=== PATIENT | female | born 1960 | race Caucasian/White ===

== ENCOUNTER 2018-03-01 11:22 | Emergency (ER) | payer MEDICARE, MEDICAID ==
[~2018-03-01] VITALS: Ht 172.7 cm; Wt 90.0 kg
[~2018-03-01 11:22] MED LIST: ASPI-611 PO; CLOP75TA15 PO; ESCI20TA PO; METF500T7 PO; METO25TA6 PO; NITR0.4T48 SL; SIMV40TA PO; TRAM50TA2 PO; TRAZ-143 PO
[2018-03-01 12:02] LABS: BASOPHILS # (AUTO) 0.1 X10'3 (0-0.2); BASOPHILS % (AUTO) 0.5 % (0-1); EOSINOPHILS # (AUTO) 0.2 X10'3 (0-0.9); EOSINOPHILS % (AUTO) 2.2 % (0-6); HEMATOCRIT 47.9 % (35.0-45.0); HEMOGLOBIN 16.7 g/dl (12.0-16.0); LYMPHOCYTES # (AUTO) 3.3 X10'3 (1.1-4.8); LYMPHOCYTES % (AUTO) 28.7 % (21-51); MEAN CORPUSCULAR HEMOGLOBIN 32.7 PG (27.0-31.0); MEAN CORPUSCULAR HGB CONC 34.8 % (33.0-36.5); MEAN CORPUSCULAR VOLUME 93.9 FL (78-98); MEAN PLATELET VOLUME 7.2 FL (7.4-10.4); MONOCYTES # (AUTO) 0.9 X10'3 (0-0.9); NEUTROPHILS # (AUTO) 6.9 X10'3 (1.8-7.7); NEUTROPHILS % (AUTO) 60.6 % (42-75); PLATELET COUNT 390 X10'3 (140-440); RED CELL DISTRIBUTION WIDTH 13.3 % (11.5-14.5); WHITE BLOOD COUNT 11.4 X10'3 (4.5-11.0)
[2018-03-01 12:05] LABS: INR 0.9 INR; PARTIAL THROMBOPLASTIN TIME 23 SECONDS (22-32); PROTHROMBIN TIME 9.8 SECONDS (9.0-12.0)
[2018-03-01 12:10] LABS: ALANINE AMINOTRANSFERASE 41 U/L (12-78); ALBUMIN 3.7 G/DL (3.4-5.0); ALBUMIN/GLOBULIN RATIO 0.8 (1.1-1.5); ALKALINE PHOSPHATASE 132 IU/L (46-116); ANION GAP 19 (8-16); BILIRUBIN,TOTAL 0.7 MG/DL (0.1-1.0); BLOOD UREA NITROGEN 20 MG/DL (7-18); BUN/CREATININE RATIO 15.6 (6.6-38.0); CALCIUM 9.9 MG/DL (8.5-10.1); CHLORIDE 85 MMOL/L (99-107); CREATININE 1.28 MG/DL (0.40-0.90); SODIUM 126 MMOL/L (135-145); TOTAL CARBON DIOXIDE 21.7 MMOL/L (24-32); TOTAL PROTEIN 8.1 G/DL (6.4-8.2); eGFR 43 ML/MIN
[2018-03-01 12:15] LABS: ASPARTATE AMINO TRANSFERASE 21 U/L (10-37); POTASSIUM 4.1 MMOL/L (3.5-5.1)
[2018-03-01 12:17] LABS: GLUCOSE 585 MG/DL (70-104)
[2018-03-01] MEDS ORDERED: normal saline 1000ML IV soln IVB ONE ×2 (13:55→16:25)
[2018-03-01 18:50] VITALS: BP 148/78
== END 2018-03-01 18:52 | disposition home or self-care (01) ==
LOC: ER 11:22
DX: E87.1 Hypo-osmolality and hyponatremia (principal); E11.65 Type 2 diabetes mellitus with hyperglycemia; R07.89 Other chest pain; I25.10 Atherosclerotic heart disease of native coronary artery without angina pectoris; I10 Essential (primary) hypertension; I25.2 Old myocardial infarction; J44.9 Chronic obstructive pulmonary disease, unspecified; G89.29 Other chronic pain; E78.00 Pure hypercholesterolemia, unspecified; G43.909 Migraine, unspecified, not intractable, without status migrainosus; Z90.49 Acquired absence of other specified parts of digestive tract; Z98.61 Coronary angioplasty status; Z98.890 Other specified postprocedural states; Z88.0 Allergy status to penicillin; Z88.8 Allergy status to other drugs, medicaments and biological substances; Z79.82 Long term (current) use of aspirin; Z79.84 Long term (current) use of oral hypoglycemic drugs; Z79.899 Other long term (current) drug therapy
CPT/HCPCS: 36415; 71045; 80053; 82948; 84295; 84484; 85025; 85610; 85730; 93005; 96360; 96361; 99285; J7030

== ENCOUNTER 2018-11-11 03:24 | Emergency (ER) | payer MEDICARE, OTHER ==
[~2018-11-11] VITALS: Ht 172.7 cm; Wt 100.0 kg
[~2018-11-11 03:24] MED LIST changes: -TRAZ-143 PO; +TRAZ-218 PO
[2018-11-11] MEDS ORDERED: benzonatate 100mg capsule PO ONE (04:25)
[2018-11-11] MEDS ORDERED: normal saline 1000ML IV soln IVB ONE (04:25)
[2018-11-11 04:45] LABS: BASOPHILS # (AUTO) 0.1 X10'3 (0-0.2); BASOPHILS % (AUTO) 0.4 % (0-1); EOSINOPHILS # (AUTO) 0.6 X10'3 (0-0.9); EOSINOPHILS % (AUTO) 4.5 % (0-6); HEMATOCRIT 46.2 % (35.0-45.0); HEMOGLOBIN 15.9 g/dl (12.0-16.0); LYMPHOCYTES # (AUTO) 4.8 X10'3 (1.1-4.8); LYMPHOCYTES % (AUTO) 38.3 % (21-51); MEAN CORPUSCULAR HEMOGLOBIN 32.3 PG (27.0-31.0); MEAN CORPUSCULAR HGB CONC 34.3 % (33.0-36.5); MEAN CORPUSCULAR VOLUME 94.1 FL (78-98); MONOCYTES # (AUTO) 0.8 X10'3 (0-0.9); MONOCYTES % (AUTO) 6.5 % (2-12); NEUTROPHILS # (AUTO) 6.3 X10'3 (1.8-7.7); NEUTROPHILS % (AUTO) 50.3 % (42-75); PLATELET COUNT 403 X10'3 (140-440); RED BLOOD COUNT 4.91 X10'6 (4.20-5.60); RED CELL DISTRIBUTION WIDTH 13.5 % (11.5-14.5); WHITE BLOOD COUNT 12.4 X10'3 (4.5-11.0)
[2018-11-11 04:54] LABS: ALANINE AMINOTRANSFERASE 71 U/L (12-78); ALBUMIN 3.9 G/DL (3.4-5.0); ALBUMIN/GLOBULIN RATIO 1.1 (1.1-1.5); ALKALINE PHOSPHATASE 150 IU/L (46-116); ANION GAP 16 (8-16); BILIRUBIN,TOTAL 0.3 MG/DL (0.1-1.0); BLOOD UREA NITROGEN 16 MG/DL (7-18); BUN/CREATININE RATIO 14.7 (6.6-38.0); CALCIUM 9.4 MG/DL (8.5-10.1); CHLORIDE 101 MMOL/L (99-107); CREATININE 1.09 MG/DL (0.40-0.90); SODIUM 137 MMOL/L (135-145); TOTAL CARBON DIOXIDE 20.5 MMOL/L (24-32); TOTAL PROTEIN 7.6 G/DL (6.4-8.2); eGFR 52 ML/MIN
[2018-11-11 05:10] LABS: ASPARTATE AMINO TRANSFERASE 37 U/L (10-37); GLUCOSE 336 MG/DL (70-104)
[2018-11-11 05:26] VITALS: BP 115/49
[2018-11-11] MEDS ORDERED: BENZ-16 PO (05:42)
[2018-11-11] MEDS ORDERED: GUAI473S11 PO (05:42)
== END 2018-11-11 05:51 | disposition home or self-care (01) ==
LOC: ER 03:25
DX: R05 Cough (principal); E11.65 Type 2 diabetes mellitus with hyperglycemia; G43.909 Migraine, unspecified, not intractable, without status migrainosus; I25.10 Atherosclerotic heart disease of native coronary artery without angina pectoris; E78.00 Pure hypercholesterolemia, unspecified; I10 Essential (primary) hypertension; I25.2 Old myocardial infarction; J44.9 Chronic obstructive pulmonary disease, unspecified; G89.29 Other chronic pain; F17.200 Nicotine dependence, unspecified, uncomplicated; Z95.5 Presence of coronary angioplasty implant and graft; Z90.49 Acquired absence of other specified parts of digestive tract; Z98.890 Other specified postprocedural states; Z87.442 Personal history of urinary calculi; Z88.0 Allergy status to penicillin; Z79.82 Long term (current) use of aspirin; Z79.899 Other long term (current) drug therapy
CPT/HCPCS: 36415; 71046; 80053; 82948; 85025; 93005; 96360; 99284; J7030

== ENCOUNTER 2018-12-20 16:30 | Emergency (ER) | payer MEDICARE, OTHER ==
[~2018-12-20] VITALS: Ht 172.7 cm; Wt 99.7 kg
[2018-12-20 17:17] LABS: BASOPHILS # (AUTO) 0.1 X10'3 (0-0.2); BASOPHILS % (AUTO) 0.6 % (0-1); EOSINOPHILS # (AUTO) 0.5 X10'3 (0-0.9); EOSINOPHILS % (AUTO) 5.6 % (0-6); HEMATOCRIT 47.5 % (35.0-45.0); HEMOGLOBIN 16.2 g/dl (12.0-16.0); LYMPHOCYTES # (AUTO) 2.9 X10'3 (1.1-4.8); MEAN CORPUSCULAR HEMOGLOBIN 32.3 PG (27.0-31.0); MEAN CORPUSCULAR HGB CONC 34.1 % (33.0-36.5); MEAN CORPUSCULAR VOLUME 94.7 FL (78-98); MONOCYTES # (AUTO) 0.5 X10'3 (0-0.9); NEUTROPHILS % (AUTO) 55.8 % (42-75); PLATELET COUNT 361 X10'3 (140-440); RED BLOOD COUNT 5.01 X10'6 (4.20-5.60); RED CELL DISTRIBUTION WIDTH 13.5 % (11.5-14.5); WHITE BLOOD COUNT 8.9 X10'3 (4.5-11.0)
[2018-12-20 17:18] LABS: CLARITY,URINE SLIGHTLY CLOUDY (Clear); COLOR,URINE YELLOW (Yellow); GLUCOSE, URINE >=1000 mg/dl (Neg); KETONES,URINE NEGATIVE (Neg); LEUKOCYTE ESTERASE ,URINE NEGATIVE (Neg); NITRITES, URINE NEGATIVE (Neg); OCCULT BLOOD,URINE LARGE (Neg); PH,URINE 5.5 (4.8-8.0); PROTEIN,URINE NEGATIVE (Neg); UA COLLECTION TYPE CLN CATCH MIDSTREAM; UROBILINOGEN,URINE 0.2 E.U/dL (0.2-1.0)
[2018-12-20 17:30] LABS: BACTERIA,URINE 2+ /HPF (Neg); RBC,URINE TNTC /HPF (0-2); SQUAMOUS EPITHELIAL CELL,UR MODERATE /LPF (FEW)
[2018-12-20 17:31] LABS: ALANINE AMINOTRANSFERASE 60 U/L (12-78); ALBUMIN 3.6 G/DL (3.4-5.0); ALBUMIN/GLOBULIN RATIO 0.9 (1.1-1.5); ALKALINE PHOSPHATASE 132 IU/L (46-116); ANION GAP 13 (8-16); ASPARTATE AMINO TRANSFERASE 35 U/L (10-37); BILIRUBIN,TOTAL 0.3 MG/DL (0.1-1.0); BLOOD UREA NITROGEN 14 MG/DL (7-18); BUN/CREATININE RATIO 18.9 (6.6-38.0); CALCIUM 9.1 MG/DL (8.5-10.1); CHLORIDE 100 MMOL/L (99-107); CREATININE 0.74 MG/DL (0.40-0.90); GLUCOSE 311 MG/DL (70-104); POTASSIUM 4.4 MMOL/L (3.5-5.1); SODIUM 136 MMOL/L (135-145); TOTAL CARBON DIOXIDE 23.5 MMOL/L (24-32); TOTAL PROTEIN 7.4 G/DL (6.4-8.2); eGFR 81 ML/MIN
[2018-12-20] MEDS ORDERED: ketorolac trometh inj. 60 MG/2 ML VIAL IM ONE (17:45)
[2018-12-20] MEDS ORDERED: HYDR-4384 PO (18:39)
[2018-12-20] MEDS ORDERED: FLO0.4C PO (18:39)
[2018-12-20] MEDS ORDERED: CIPR-230 PO (18:39)
[2018-12-20 18:45] VITALS: BP 98/43
== END 2018-12-20 18:47 | disposition home or self-care (01) ==
LOC: ER 16:30
DX: N20.0 Calculus of kidney (principal); N39.0 Urinary tract infection, site not specified; I25.10 Atherosclerotic heart disease of native coronary artery without angina pectoris; G43.909 Migraine, unspecified, not intractable, without status migrainosus; E78.00 Pure hypercholesterolemia, unspecified; I10 Essential (primary) hypertension; I25.2 Old myocardial infarction; J44.9 Chronic obstructive pulmonary disease, unspecified; E11.9 Type 2 diabetes mellitus without complications; G89.29 Other chronic pain; M54.5 Low back pain; Z90.49 Acquired absence of other specified parts of digestive tract; Z88.0 Allergy status to penicillin; Z91.041 Radiographic dye allergy status; Z79.82 Long term (current) use of aspirin
CPT/HCPCS: 36415; 74176; 80053; 81001; 85025; 87088; 96372; 99284; J1885

== ENCOUNTER 2019-04-27 09:47 | Observation (INO) | payer MEDICARE ==
[~2019-04-27] VITALS: Ht 172.7 cm; Wt 113.6 kg
[~2019-04-27 09:47] MED LIST changes: -TRAZ-218 PO; +TRAZ-251 PO
[2019-04-27] MEDS ORDERED: aspirin 81mg tab.chew PO ONE (10:20)
[2019-04-27 10:25] LABS: BASOPHILS # (AUTO) 0.1 X10'3 (0-0.2); EOSINOPHILS # (AUTO) 0.3 X10'3 (0-0.9); EOSINOPHILS % (AUTO) 3.2 % (0-6); HEMATOCRIT 44.3 % (35.0-45.0); HEMOGLOBIN 15.1 g/dl (12.0-16.0); LYMPHOCYTES # (AUTO) 3.3 X10'3 (1.1-4.8); LYMPHOCYTES % (AUTO) 32.7 % (21-51); MEAN CORPUSCULAR HEMOGLOBIN 32.4 PG (27.0-31.0); MEAN CORPUSCULAR HGB CONC 34.2 g/dL (33.0-36.5); MEAN PLATELET VOLUME 6.4 FL (7.4-10.4); MONOCYTES # (AUTO) 0.7 X10'3 (0-0.9); MONOCYTES % (AUTO) 6.8 % (2-12); NEUTROPHILS # (AUTO) 5.7 X10'3 (1.8-7.7); NEUTROPHILS % (AUTO) 56.3 % (42-75); PLATELET COUNT 385 X10'3 (140-440); RED BLOOD COUNT 4.66 X10'6 (4.20-5.60); RED CELL DISTRIBUTION WIDTH 13.6 % (11.5-14.5); WHITE BLOOD COUNT 10.2 X10'3 (4.5-11.0)
[2019-04-27 10:43] LABS: PARTIAL THROMBOPLASTIN TIME 27 SECONDS (22-32)
[2019-04-27 10:45] LABS: ALANINE AMINOTRANSFERASE 95 U/L (12-78); ALBUMIN 3.7 G/DL (3.4-5.0); ALKALINE PHOSPHATASE 136 IU/L (46-116); ANION GAP 9 (8-16); ASPARTATE AMINO TRANSFERASE 46 U/L (10-37); BILIRUBIN,TOTAL 0.2 MG/DL (0.1-1.0); BLOOD UREA NITROGEN 17 MG/DL (7-18); BUN/CREATININE RATIO 21.3 (6.6-38.0); CALCIUM 9.1 MG/DL (8.5-10.1); CHLORIDE 107 MMOL/L (99-107); GLUCOSE 183 MG/DL (70-104); POTASSIUM 4.2 MMOL/L (3.5-5.1); SODIUM 141 MMOL/L (135-145); TOTAL CARBON DIOXIDE 24.8 MMOL/L (24-32); TOTAL PROTEIN 7.5 G/DL (6.4-8.2); TROPONIN I < 0.04 NG/ML (0.0-0.05); eGFR 74 ML/MIN
[2019-04-27] MEDS ORDERED: iohexol 350MG/ML 100ml bottle IV ONE (10:45)
[2019-04-27] MEDS ORDERED: dexamethasone sod phosphate 10mg/ml inj IV STA (10:50)
[2019-04-27] MEDS ORDERED: diphenhydrAMINE 50 mg/ml inj IV ONE (10:50)
[2019-04-27] MEDS ORDERED: MESSAGE TO NURSING PO NR (11:50)
[2019-04-27] MEDS ORDERED: ATOR-2 PO (12:30)
[2019-04-27] MEDS ORDERED: GLIM4TAB79 PO (12:30)
[2019-04-27] MEDS ORDERED: GABA-534 PO (12:30)
[2019-04-27] MEDS ORDERED: HYDR-3973 PO (12:33)
[2019-04-27] MEDS ORDERED: ERGO500041 PO (12:33)
[2019-04-27] MEDS ORDERED: INSU100I31 SQ (12:44)
[2019-04-27] MEDS ORDERED: normal saline 1000ml 1,000 ML IV SCH (13:01)
[2019-04-27] MEDS ORDERED: acetaminophen 325mg tablet PO PRN ×2 (13:05)
[2019-04-27] MEDS ORDERED: ondansetron/PF 4mg/2ml inj IV PRN (13:05)
[2019-04-27] MEDS ORDERED: magnesium hydroxide 30ml (MOM) UD suspension PO PRN (13:05)
[2019-04-27] MEDS ORDERED: morphine 2 MG/ML inj. syringe IV PRN ×2 (13:05)
[2019-04-27] MEDS ORDERED: mag hydrox/Alum hydrox/simeth 30ml oral suspension PO PRN (13:05)
[2019-04-27] MEDS ORDERED: HYDROcodone/acetaminophen 5mg/325mg tablet PO PRN (13:05)
[2019-04-27] MEDS ORDERED: HYDROcodone/acetaminophen 10/325mg tab PO PRN (13:25)
[2019-04-27 13:36] LABS: HEMOGLOBIN A1C 7.4 % (4.5-6.2)
--- NOTE | 2019-04-27 15:38 | NUR ---
Hospitalist at bedside, spoke him regarding a possible nicotine patch as pt is a 1 pack/day smoker. He states that the pt will be getting discharged at this time. Will await discharge orders.
[2019-04-27] MEDS ORDERED: NICO-687 TOP (15:43)
--- NOTE | 2019-04-27 16:30 | NUR ---
Discharge orders received from hospitalist. Rx called in to [facility].
[2019-04-27 16:37] VITALS: BP 129/87
[2019-04-27] MEDS ORDERED: insulin glargine (Lantus) pen - multi-dose SQ SCH (21:00)
[2019-04-27] MEDS ORDERED: gabapentin 400mg capsule PO SCH (21:00)
[2019-04-28] MEDS ORDERED: non-formulary drug (Atorvastatin Calcium 1 TAB) PO SCH (08:00)
[2019-04-28] MEDS ORDERED: aspirin 81mg tablet.DR PO SCH (08:00)
[2019-04-28] MEDS ORDERED: non-formulary drug (Aspirin (Aspir 81) 1 TAB) PO SCH (08:00)
[2019-04-28] MEDS ORDERED: metoprolol tartrate 25mg tablet PO SCH (08:00)
[2019-04-28] MEDS ORDERED: atorvastatin 20mg tablet PO SCH (08:00)
[2019-04-28] MEDS ORDERED: escitalopram 20mg tablet PO SCH (08:00)
[2019-04-28] MEDS ORDERED: citalopram 20mg tablet PO SCH (08:00)
[2019-04-28] MEDS ORDERED: clopidogrel 75mg tablet PO SCH (08:00)
== END 2019-04-27 16:39 | disposition home or self-care (01) ==
LOC: ER 09:48 → ORTHO 4S 15:29
PROVIDERS: ADMIT Internal Medicine; ATTEND Internal Medicine
DX: R20.0 Anesthesia of skin (principal); I25.10 Atherosclerotic heart disease of native coronary artery without angina pectoris; I25.2 Old myocardial infarction; E78.00 Pure hypercholesterolemia, unspecified; E78.5 Hyperlipidemia, unspecified; E11.40 Type 2 diabetes mellitus with diabetic neuropathy, unspecified; F32.9 Major depressive disorder, single episode, unspecified; M54.9 Dorsalgia, unspecified; G89.29 Other chronic pain; F17.210 Nicotine dependence, cigarettes, uncomplicated; I10 Essential (primary) hypertension; J44.9 Chronic obstructive pulmonary disease, unspecified; Z88.0 Allergy status to penicillin; Z79.82 Long term (current) use of aspirin; Z88.1 Allergy status to other antibiotic agents; Z90.49 Acquired absence of other specified parts of digestive tract; Z86.73 Personal history of transient ischemic attack (TIA), and cerebral infarction without residual deficits
CPT/HCPCS: 36415; 70450; 70496; 70498; 70544; 70551; 71045; 80053; 82948; 83036; 84484; 85025; 85610; 85651; 85730; 87070; 93005; 96361; 96374; 96375; 99284; G0378; J1100; J1200; Q9967; J1815; J7030

== ENCOUNTER 2019-12-01 16:23 | Emergency (ER) | payer MEDICARE ==
[~2019-12-01] VITALS: Ht 172.7 cm; Wt 104.0 kg
[~2019-12-01 16:23] MED LIST changes: +ATOR-2 PO; +ERGO500041 PO; +GABA-534 PO; +GLIM4TAB7 PO; +HYDR-3973 PO; +INSU100I31 SQ; +METF500T20 PO; -METF500T7 PO; -SIMV40TA PO; -TRAM50TA2 PO; -TRAZ-251 PO
[2019-12-01] MEDS ORDERED: CLIN300C70 PO (17:52)
[2019-12-01] MEDS ORDERED: IBUP-1984 PO (17:52)
[2019-12-01 18:12] VITALS: BP 108/89
== END 2019-12-01 18:13 | disposition home or self-care (01) ==
LOC: ER 16:23
DX: K04.7 Periapical abscess without sinus (principal); G43.909 Migraine, unspecified, not intractable, without status migrainosus; I25.10 Atherosclerotic heart disease of native coronary artery without angina pectoris; E78.00 Pure hypercholesterolemia, unspecified; I10 Essential (primary) hypertension; I25.2 Old myocardial infarction; J44.9 Chronic obstructive pulmonary disease, unspecified; E11.9 Type 2 diabetes mellitus without complications; G89.29 Other chronic pain; Z95.5 Presence of coronary angioplasty implant and graft; Z90.49 Acquired absence of other specified parts of digestive tract; Z98.890 Other specified postprocedural states; Z88.0 Allergy status to penicillin; Z79.82 Long term (current) use of aspirin; Z79.899 Other long term (current) drug therapy; Z79.4 Long term (current) use of insulin
CPT/HCPCS: 99283

== ENCOUNTER 2020-07-10 22:26 | Emergency (ER) | payer MEDICARE ==
[~2020-07-10] VITALS: Ht 172.7 cm; Wt 102.0 kg
[~2020-07-10 22:26] MED LIST changes: +METF-900 PO; -METF500T20 PO
[2020-07-10 23:04] LABS: BASOPHILS # (AUTO) 0.1 X10'3 (0-0.2); BASOPHILS % (AUTO) 1.1 % (0-1); EOSINOPHILS # (AUTO) 0.5 X10'3 (0-0.9); EOSINOPHILS % (AUTO) 4.3 % (0-6); HEMOGLOBIN 16.4 g/dl (12.0-16.0); LYMPHOCYTES # (AUTO) 2.9 X10'3 (1.1-4.8); MEAN CORPUSCULAR HEMOGLOBIN 32.7 PG (27.0-31.0); MEAN CORPUSCULAR HGB CONC 34.2 g/dL (33.0-36.5); MEAN CORPUSCULAR VOLUME 95.6 FL (78-98); MEAN PLATELET VOLUME 6.5 FL (7.4-10.4); MONOCYTES # (AUTO) 0.6 X10'3 (0-0.9); MONOCYTES % (AUTO) 5.7 % (2-12); NEUTROPHILS # (AUTO) 6.8 X10'3 (1.8-7.7); NEUTROPHILS % (AUTO) 61.9 % (42-75); PLATELET COUNT 397 X10'3 (140-440); RED BLOOD COUNT 5.02 X10'6 (4.20-5.60); RED CELL DISTRIBUTION WIDTH 13.5 % (11.5-14.5); WHITE BLOOD COUNT 10.9 X10'3 (4.5-11.0)
[2020-07-10 23:15] LABS: ALBUMIN 3.9 G/DL (3.4-5.0); ANION GAP 14 (8-16); BILIRUBIN,TOTAL 0.2 MG/DL (0.1-1.0); CHLORIDE 104 MMOL/L (99-107); SODIUM 139 MMOL/L (135-145); TOTAL CARBON DIOXIDE 20.7 MMOL/L (24-32); TROPONIN I < 0.04 NG/ML (0.0-0.05)
[2020-07-10 23:36] LABS: COLOR,URINE YELLOW (Yellow); GLUCOSE, URINE >=1000 mg/dl (Neg); KETONES,URINE NEGATIVE (Neg); LEUKOCYTE ESTERASE ,URINE NEGATIVE (Neg); NITRITES, URINE NEGATIVE (Neg); OCCULT BLOOD,URINE LARGE (Neg); PROTEIN,URINE NEGATIVE (Neg); UROBILINOGEN,URINE 0.2 E.U/dL (0.2-1.0)
[2020-07-10 23:39] LABS: CLARITY,URINE SLIGHTLY CLOUDY (Clear); UA COLLECTION TYPE CLN CATCH MIDSTREAM
[2020-07-10 23:45] LABS: BACTERIA,URINE 1+ /HPF (Neg); SQUAMOUS EPITHELIAL CELL,UR FEW /LPF (FEW)
[2020-07-10 23:47] LABS: URINE AMPHETAMINE SCREEN NEGATIVE (Neg); URINE BARBITUATE SCREEN NEGATIVE (Neg); URINE BENZODIAZEPINES SCREEN NEGATIVE (Neg); URINE CANNABINOID SCREEN NEGATIVE (Neg); URINE COCAINE SCREEN NEGATIVE (Neg); URINE METHADONE SCREEN NEGATIVE (Neg); URINE OPIATE SCREEN POSITIVE (Neg); URINE PHENCYCLIDINE SCREEN NEGATIVE (Neg)
[2020-07-10 23:48] LABS: ALANINE AMINOTRANSFERASE 61 U/L (12-78); ALKALINE PHOSPHATASE 97 IU/L (46-116); ASPARTATE AMINO TRANSFERASE 34 U/L (10-37); BLOOD UREA NITROGEN 20 MG/DL (7-18); CALCIUM 9.3 MG/DL (8.5-10.1); CREATININE 0.91 MG/DL (0.40-0.90); GLUCOSE 209 MG/DL (70-104); POTASSIUM 3.9 MMOL/L (3.5-5.1); TOTAL PROTEIN 7.9 G/DL (6.4-8.2); eGFR 63 ML/MIN
[2020-07-10 23:56] LABS: ETHANOL < 0.010 GM/DL (0.0-0.010)
[2020-07-11] MEDS ORDERED: MECL-159 PO (00:29)
[2020-07-11] MEDS ORDERED: ONDA4TAB6 PO (00:29)
[2020-07-11] MEDS ORDERED: ondansetron 4mg rapidly disintigrating tab PO ONE (00:30)
[2020-07-11] MEDS ORDERED: meclizine 12.5mg tablet PO ONE (00:30)
[2020-07-11 00:44] VITALS: BP 146/88
== END 2020-07-11 01:03 | disposition home or self-care (01) ==
LOC: ER 22:26
DX: E11.65 Type 2 diabetes mellitus with hyperglycemia (principal); R42 Dizziness and giddiness; G43.909 Migraine, unspecified, not intractable, without status migrainosus; I25.10 Atherosclerotic heart disease of native coronary artery without angina pectoris; E78.00 Pure hypercholesterolemia, unspecified; I10 Essential (primary) hypertension; I25.2 Old myocardial infarction; J45.909 Unspecified asthma, uncomplicated; J44.9 Chronic obstructive pulmonary disease, unspecified; G89.29 Other chronic pain; F32.9 Major depressive disorder, single episode, unspecified; Z87.442 Personal history of urinary calculi; Z90.49 Acquired absence of other specified parts of digestive tract; Z98.890 Other specified postprocedural states; Z88.0 Allergy status to penicillin; Z88.8 Allergy status to other drugs, medicaments and biological substances; Z79.82 Long term (current) use of aspirin; Z79.4 Long term (current) use of insulin; Z79.899 Other long term (current) drug therapy
CPT/HCPCS: 36415; 70450; 71045; 80053; 80305; 80320; 81001; 82140; 82948; 84484; 85025; 87088; 93005; 99285; J8597

== ENCOUNTER 2020-08-11 20:41 | Emergency (ER) | payer MEDICARE ==
[~2020-08-11] VITALS: Ht 172.7 cm; Wt 104.5 kg
[~2020-08-11 20:41] MED LIST changes: +MECL-159 PO; +ONDA4TAB6 PO
[2020-08-11 21:55] VITALS: BP 112/72
== END 2020-08-11 21:57 | disposition home or self-care (01) ==
LOC: ER 20:43
DX: J06.9 Acute upper respiratory infection, unspecified (principal); G43.909 Migraine, unspecified, not intractable, without status migrainosus; I25.10 Atherosclerotic heart disease of native coronary artery without angina pectoris; E78.00 Pure hypercholesterolemia, unspecified; I10 Essential (primary) hypertension; I25.2 Old myocardial infarction; J44.9 Chronic obstructive pulmonary disease, unspecified; E11.9 Type 2 diabetes mellitus without complications; G89.29 Other chronic pain; F32.9 Major depressive disorder, single episode, unspecified; Z98.61 Coronary angioplasty status; Z90.49 Acquired absence of other specified parts of digestive tract; Z98.890 Other specified postprocedural states; Z88.0 Allergy status to penicillin; Z88.8 Allergy status to other drugs, medicaments and biological substances; Z79.82 Long term (current) use of aspirin; Z79.4 Long term (current) use of insulin; Z79.899 Other long term (current) drug therapy
CPT/HCPCS: 36415; 71045; 87635; 99283; 99284

== ENCOUNTER 2021-02-21 18:06 | Emergency (ER) | payer MEDICARE ==
[~2021-02-21] VITALS: Ht 172.7 cm; Wt 95.0 kg
[~2021-02-21 18:06] MED LIST changes: -ATOR-2 PO; +ATOR10TA PO; +EMPA25TA PO; -ERGO500041 PO; +EZET10TA6 PO; -INSU100I31 SQ; +LOP25T PO; -MECL-159 PO; -METO25TA6 PO; -NITR0.4T48 SL; -ONDA4TAB6 PO
[2021-02-21 19:38] LABS: BASOPHILS # (AUTO) 0.1 X10'3 (0-0.2); BASOPHILS % (AUTO) 0.7 % (0-1); EOSINOPHILS # (AUTO) 0.4 X10'3 (0-0.9); EOSINOPHILS % (AUTO) 3.3 % (0-6); HEMATOCRIT 49.9 % (35.0-45.0); HEMOGLOBIN 17.1 g/dl (12.0-16.0); LYMPHOCYTES # (AUTO) 5.2 X10'3 (1.1-4.8); LYMPHOCYTES % (AUTO) 41.9 % (21-51); MEAN CORPUSCULAR HEMOGLOBIN 32.4 PG (27.0-31.0); MEAN CORPUSCULAR HGB CONC 34.2 g/dL (33.0-36.5); MEAN CORPUSCULAR VOLUME 94.5 FL (78-98); MEAN PLATELET VOLUME 6.6 FL (7.4-10.4); MONOCYTES # (AUTO) 0.9 X10'3 (0-0.9); MONOCYTES % (AUTO) 6.9 % (2-12); NEUTROPHILS # (AUTO) 5.8 X10'3 (1.8-7.7); NEUTROPHILS % (AUTO) 47.2 % (42-75); PLATELET COUNT 372 X10'3 (140-440); RED BLOOD COUNT 5.28 X10'6 (4.20-5.60); RED CELL DISTRIBUTION WIDTH 13.5 % (11.5-14.5); WHITE BLOOD COUNT 12.4 X10'3 (4.5-11.0)
[2021-02-21 19:42] LABS: ALANINE AMINOTRANSFERASE 61 U/L (12-78); ALBUMIN 4.1 G/DL (3.4-5.0); ALKALINE PHOSPHATASE 161 IU/L (46-116); ANION GAP 16 (8-16); ASPARTATE AMINO TRANSFERASE 25 U/L (10-37); BILIRUBIN,TOTAL 0.3 MG/DL (0.1-1.0); BLOOD UREA NITROGEN 17 MG/DL (7-18); BUN/CREATININE RATIO 18.1 (6.6-38.0); CALCIUM 9.9 MG/DL (8.5-10.1); CHLORIDE 104 MMOL/L (99-107); CREATININE 0.94 MG/DL (0.40-0.90); GLUCOSE 198 MG/DL (70-104); POTASSIUM 4.2 MMOL/L (3.5-5.1); SODIUM 140 MMOL/L (135-145); TOTAL PROTEIN 8.2 G/DL (6.4-8.2); eGFR 61 ML/MIN
[2021-02-21 19:45] LABS: TROPONIN I < 0.04 NG/ML (0.0-0.05)
[2021-02-21 19:48] LABS: C-REACTIVE PROTEIN < 0.05 MG/DL (0.0-0.5)
[2021-02-21] MEDS ORDERED: ketorolac tromethamine 15mg/ml inj. IV ONE (20:05)
[2021-02-21] MEDS ORDERED: diphenhydrAMINE 50 mg/ml inj IV ONE (20:05)
[2021-02-21] MEDS ORDERED: normal saline 1000ml 1,000 ML IV ONE (20:05)
[2021-02-21] MEDS ORDERED: proCHLORperazine 10 MG/2 ml inj IV ONE (20:05)
[2021-02-21] MEDS ORDERED: AZIT250T81 PO (20:43)
[2021-02-21] MEDS ORDERED: BENZ-16 PO (20:43)
[2021-02-21 20:59] VITALS: BP 121/90
== END 2021-02-21 21:02 | disposition home or self-care (01) ==
LOC: ER 18:07
DX: B34.9 Viral infection, unspecified (principal); Z20.822 Contact with and (suspected) exposure to COVID-19; G43.909 Migraine, unspecified, not intractable, without status migrainosus; I25.10 Atherosclerotic heart disease of native coronary artery without angina pectoris; E78.00 Pure hypercholesterolemia, unspecified; I10 Essential (primary) hypertension; I25.2 Old myocardial infarction; J44.9 Chronic obstructive pulmonary disease, unspecified; E11.9 Type 2 diabetes mellitus without complications; G89.29 Other chronic pain; F17.200 Nicotine dependence, unspecified, uncomplicated; Z98.61 Coronary angioplasty status; Z90.49 Acquired absence of other specified parts of digestive tract; Z98.890 Other specified postprocedural states; Z79.82 Long term (current) use of aspirin; Z79.2 Long term (current) use of antibiotics; Z79.899 Other long term (current) drug therapy; Z88.0 Allergy status to penicillin; Z91.041 Radiographic dye allergy status
CPT/HCPCS: 36415; 71045; 80053; 84145; 84484; 85025; 86140; 87502; 87503; 87635; 93005; 96361; 96374; 96375; 99285; C9803; J0780; J1200; J1885; J7030

== ENCOUNTER 2022-05-09 20:25 | Emergency (ER) | payer MEDICARE ==
[~2022-05-09 20:25] MED LIST changes: +METH4TAB3 PO
== END 2022-05-09 23:38 | disposition left against medical advice (07) ==
LOC: ER 20:25
DX: J11.1 Influenza due to unidentified influenza virus with other respiratory manifestations (principal); Z53.21 Procedure and treatment not carried out due to patient leaving prior to being seen by health care provider

== ENCOUNTER 2022-07-18 22:48 | Emergency (ER) | payer MEDICARE ==
[~2022-07-18] VITALS: Ht 175.3 cm; Wt 90.9 kg
[2022-07-18 23:52] LABS: BASOPHILS # (AUTO) 0.1 X10'3 (0-0.2); BASOPHILS % (AUTO) 0.7 % (0-1); EOSINOPHILS # (AUTO) 0.4 X10'3 (0-0.9); EOSINOPHILS % (AUTO) 2.9 % (0-6); HEMATOCRIT 44.4 % (35.0-45.0); HEMOGLOBIN 15.4 g/dl (12.0-16.0); LYMPHOCYTES % (AUTO) 32.6 % (21-51); MEAN CORPUSCULAR HEMOGLOBIN 32.4 PG (27.0-31.0); MEAN CORPUSCULAR HGB CONC 34.7 g/dL (33.0-36.5); MEAN CORPUSCULAR VOLUME 93.4 FL (78-98); MEAN PLATELET VOLUME 6.3 FL (7.4-10.4); MONOCYTES # (AUTO) 0.8 X10'3 (0-0.9); MONOCYTES % (AUTO) 6.1 % (2-12); NEUTROPHILS # (AUTO) 7.1 X10'3 (1.8-7.7); NEUTROPHILS % (AUTO) 57.7 % (42-75); PLATELET COUNT 351 X10'3 (140-440); RED BLOOD COUNT 4.75 X10'6 (4.20-5.60); RED CELL DISTRIBUTION WIDTH 13.2 % (11.5-14.5); WHITE BLOOD COUNT 12.4 X10'3 (4.5-11.0)
[2022-07-19 00:05] LABS: ALANINE AMINOTRANSFERASE 52 U/L (12-78); ALBUMIN 3.7 G/DL (3.4-5.0); ALBUMIN/GLOBULIN RATIO 0.9 (1.1-1.5); ALKALINE PHOSPHATASE 127 IU/L (46-116); BILIRUBIN,TOTAL 0.2 MG/DL (0.1-1.0); BLOOD UREA NITROGEN 11 MG/DL (7-18); BUN/CREATININE RATIO 15.5 (6.6-38.0); CALCIUM 9.3 MG/DL (8.5-10.1); CREATININE 0.71 MG/DL (0.40-0.90); GLUCOSE 178 MG/DL (70-104); TOTAL CARBON DIOXIDE 25.7 MMOL/L (24-32); TOTAL PROTEIN 7.7 G/DL (6.4-8.2); eGFR 84 ML/MIN
[2022-07-19] MEDS ORDERED: INSU100I31 (00:20)
[2022-07-19] MEDS ORDERED: METH-797 (00:20)
[2022-07-19] MEDS ORDERED: ibuprofen tablet 400 MG TABLET PO ONE (00:35)
[2022-07-19] MEDS ORDERED: clindamycin 150mg capsule PO ONE (00:35)
[2022-07-19] MEDS ORDERED: HYDROcodone/acetaminophen 10/325mg tab PO ONE (00:35)
[2022-07-19] MEDS ORDERED: ondansetron 4mg rapidly disintigrating tab PO ONE (00:35)
[2022-07-19 00:40] LABS: ANION GAP 12 (8-16); ASPARTATE AMINO TRANSFERASE 29 U/L (10-37); CHLORIDE 104 MMOL/L (99-107); SODIUM 142 MMOL/L (135-145)
[2022-07-19] MEDS ORDERED: CLIN150C8 PO (01:30)
[2022-07-19 02:15] VITALS: BP 134/87
== END 2022-07-19 02:25 | disposition home or self-care (01) ==
LOC: ER 22:49
DX: L02.31 Cutaneous abscess of buttock (principal); G43.909 Migraine, unspecified, not intractable, without status migrainosus; E78.00 Pure hypercholesterolemia, unspecified; I10 Essential (primary) hypertension; J44.9 Chronic obstructive pulmonary disease, unspecified; E11.9 Type 2 diabetes mellitus without complications; G89.29 Other chronic pain; M54.50 Low back pain, unspecified; Z88.0 Allergy status to penicillin; Z91.041 Radiographic dye allergy status; Z90.49 Acquired absence of other specified parts of digestive tract; Z98.890 Other specified postprocedural states
CPT/HCPCS: 10060; 36415; 80053; 83605; 84145; 85025; 87040; 99284; A6449

== ENCOUNTER 2025-03-21 16:34 | Emergency (ER) | payer MEDICARE ==
[~2025-03-21] VITALS: Ht 172.7 cm; Wt 83.2 kg
[~2025-03-21 16:34] MED LIST changes: +ALBU18HF2 PO; -ASPI-611 PO; +ASPI81TA52 PO; +ATOR-2 PO; -ATOR10TA PO; +BACL10TA2 PO; +EZET10TA48 PO; -EZET10TA6 PO; -GABA-534 PO; +GABA-535 PO; +LEVO750T68 PO; -LOP25T PO; -METH4TAB3 PO; +NICO-631 TD; +ONDA-243 PO; +SITA100T15 PO
--- NOTE | 2025-03-21 16:45 | ELECTROCARDIOGRAPH REPORT ---
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 Gordon Tomlinson Measurements Intervals [place] Rate: 91 P: 66 [place]: 142 QRS: 57 QRSD: 82 T: 64 QT: 372 QTc: 458 Interpretive Statements Sinus rhythm Low voltage, precordial leads Anteroseptal infarct, old Electronically Signed On 03-21-2025 19:21:[address] Gordon Tomlinson Please click the below link to view image of tracing.
[2025-03-21 16:52] LABS: BASOPHILS # (AUTO) 0.1 X10'3 (0-0.2); BASOPHILS % (AUTO) 1.1 % (0-1); EOSINOPHILS # (AUTO) 0.4 X10'3 (0-0.9); EOSINOPHILS % (AUTO) 3.7 % (0-6); HEMATOCRIT 38.9 % (35.0-45.0); HEMOGLOBIN 13.6 g/dl (12.0-16.0); LYMPHOCYTES # (AUTO) 3.2 X10'3 (1.1-4.8); LYMPHOCYTES % (AUTO) 30.7 % (21-51); MEAN CORPUSCULAR HEMOGLOBIN 33.3 PG (27.0-31.0); MEAN CORPUSCULAR HGB CONC 34.9 g/dL (33.0-36.5); MEAN CORPUSCULAR VOLUME 95.5 FL (78-98); MEAN PLATELET VOLUME 6.1 FL (7.4-10.4); MONOCYTES # (AUTO) 0.7 X10'3 (0-0.9); MONOCYTES % (AUTO) 6.8 % (2-12); NEUTROPHILS # (AUTO) 6.1 X10'3 (1.8-7.7); NEUTROPHILS % (AUTO) 57.7 % (42-75); PLATELET COUNT 379 X10'3 (140-440); RED BLOOD COUNT 4.08 X10'6 (4.20-5.60); RED CELL DISTRIBUTION WIDTH 13.6 % (11.5-14.5); WHITE BLOOD COUNT 10.5 X10'3 (4.5-11.0)
--- NOTE | 2025-03-21 17:03 | RADIOLOGY REPORT ---
CHEST RADIOGRAPH Indication: CP Technique: Single frontal view of the chest was obtained COMPARISON: DI CHEST,SINGLE VIEW on DOS: 01/03/25, CHEST,SINGLE VIEW on DOS: 02/21/21, CHEST,SINGLE VIEW on DOS: 09/30/20, CHEST,SINGLE VIEW on DOS: 08/11/20, CHEST,SINGLE VIEW on DOS: 07/10/20 FINDINGS: Lines and Tubes: None Lungs: Clear Pleura: No effusion. No pneumothorax. Cardiomediastinal contours: Unremarkable Bones: Unremarkable IMPRESSION: 1. No acute disease.
[2025-03-21 17:29] LABS: ALANINE AMINOTRANSFERASE 55 U/L (12-78); ALBUMIN 3.2 G/DL (3.4-5.0); ALBUMIN/GLOBULIN RATIO 1.1 (1.1-1.5); ALKALINE PHOSPHATASE 77 IU/L (46-116); ANION GAP 11 (8-16); ASPARTATE AMINO TRANSFERASE 30 U/L (10-37); BILIRUBIN,TOTAL 0.3 MG/DL (0.1-1.0); BLOOD UREA NITROGEN 13 MG/DL (7-18); BUN/CREATININE RATIO 16.3 (10.0-20.0); CALCIUM 8.5 MG/DL (8.5-10.1); CHLORIDE 109 MMOL/L (99-107); GLUCOSE 99 MG/DL (70-104); POTASSIUM 3.5 MMOL/L (3.5-5.1); PRO BRAIN NATRIURETIC PEPTIDE 53 PG/ML (0-125); SODIUM 144 MMOL/L (135-145); TOTAL CARBON DIOXIDE 24.5 MMOL/L (24-32); TOTAL PROTEIN 6.2 G/DL (6.4-8.2); eCRCL 73 ML/MIN; eGFR 72 ML/MIN
--- NOTE | 2025-03-21 17:33 | Physician Documentation ---
History of Present Illness ~ Chief Complaint: Chest Pain Stated Complaint: DIZZY Time Seen by MD: 17:31 Primary Medical Doctor: Dr. Muller. Net Applications Developer: Dr. Young Mode of Arrival: EMS HPI 64-year-old female who presents with lightheadedness and dizziness that started about a couple hours ago. Patient states that she was at home taking out the garbage when she suddenly became very lightheaded and felt like she was going to faint. She also developed a little bit of chest pain at that time which has now resolved. The patient reports that the lightheaded this feels better now however it was very bothersome and she felt like she was going to faint. The patient had a kidney infection about a week ago and was started on cefdinir. She has been taking the medication and feels like her urinary symptoms are getting better however she has also been vomiting due to the antibiotic upsetting her stomach. She otherwise denies any fever, chills or any other associated symptoms. Medication Reconciliation Allergies: Coded Allergies: Iodinated Contrast Media (Verified Allergy, Unknown, STOP BREATHING, 03/21/25) Penicillins (Verified Allergy, Unknown, 03/21/25) Scheduled Aspirin (Aspirin EC), 1 TAB PO DAILY, (Reported) Atorvastatin Calcium (Atorvastatin Calcium), 1 TAB PO DAILY, (Reported) Baclofen (Baclofen), 1 TAB PO BID, (Reported) Cefdinir (Cefdinir), 1 CAP PO BID, (Reported) Clopidogrel Bisulfate (Plavix), 75 MG PO DAILY, (Reported) Empagliflozin (Jardiance), 1 TAB PO DAILY, (Reported) Escitalopram Oxalate (Lexapro), 1 TAB PO DAILY, (Reported) Ezetimibe (Ezetimibe), 1 TAB PO DAILY, (Reported) Gabapentin (Gabapentin), 1 CAP PO BID, (Reported) Glimepiride* (Amaryl*), 1 TAB PO DAILY, (Reported) Levofloxacin (Levofloxacin), 750 MG PO DAILY@11 Metformin Hcl* (Metformin ER*), 2 TAB PO BID, (Reported) Nicotine 14 MG Patch* (Habitrol 14 MG Patch*), 1 PATCH TD DAILY Sitagliptin Phosphate* (Januvia*), 1 TAB PO DAILY, (Reported) Scheduled PRN Albuterol Sulfate (Ventolin Hfa), 2 PUFFS PO Q4H PRN for SOB or wheezing, (Reported) Hydrocodone Bit/Acetaminophen (Hydrocodone-Apap 10-325 Tablet), 1 TAB PO TID PRN for pain, (Reported) ONDANSETRON ODT 4mg tablet (Ondansetron Odt), 1 TAB PO TID PRN for nausea/vomiting, (Reported) Discontinued Medications Cefdinir* (Cefdinir*), 1 CAP PO Q12H Discontinued Reason: Auto Discontinued Past Medical History Past Medical History: Migraine, Coronary Artery Disease, High Cholesterol, Hypertension, Myocardial Infarction, Asthma, COPD, Pneumonia, Previously Intubated, Kidney Stones, Diabetes, Chronic Back Pain, Depression Past Surgical History: angioplasty, cholecystectomy, , orthopedic surgeries Patient History: (CAD) Coronary arteriosclerosis FATHER MOTHER (Cancer) Malignant carcinoid tumor Alcohol Use: Rarely Drug Use: none Lives with: Family Lives In: Home Occupation: unemployed Review of Systems All Other Systems at this time: Reviewed and Negative ROS As stated above in the HPI, otherwise all systems are reviewed and negative. Physical Exam Vital Signs: Temperature: 98.4, Heart Rate: 86, Respiratory Rate: 12, BP: 109/53, Pulse Oximetry: 95, Weight: 83.200 Oxygen Flow Rate: 0 Physical Exam I have reviewed the triage vitals. CONST: Well developed and well nourished. In no acute distress HENT: Head Atraumatic EYES: Pupils are equal, round and reactive to light. Normal conjunctiva NECK: Normal range of motion. Supple. CARDIO: Normal rate and regular rhythm. No murmurs, rubs, or gallops. S1, S2. PULM/CHEST: No respiratory distress. Lungs clear to auscultation. No wheeze ABD: Soft and nontender. Nondistended. Bowel sounds normal. No guarding. : Exam deferred MSK: No edema. No deformity. NEURO: Alert and oriented to person, place and time. Moving all extremities SKIN: Warm and dry. PSYCH: Normal mood and affect. Good eye contact. Progress Progress Note 1953: The case was discussed with the hospitalist who was informed on the patients case and kindly agreed to admission. 2005: The case was consulted with Dr. Selby the telecommunications engineer urologist who was informed on the case and agreed to the plan of admitting the patient and states he would see her. Results/Orders Results/Orders Medications Received in ER Medications (Trade) Dose Ordered Sig/Micah Route PRN Reason Start Time Stop Time Status Last Admin Dose Admin Sodium Chloride 1,000 ml @ 1,000 mls/hr ONCE ONCE IV 03/21/25 17:35 03/21/25 18:34 DC 03/21/25 17:36 1,000 MLS/HR Ceftriaxone Sodium/Dextrose 50 ml @ 100 mls/hr ONCE ONCE IV 03/21/25 18:30 03/21/25 18:59 DC 03/21/25 18:39 100 MLS/HR Vital Signs 03/21/25 03/21/25 03/21/25 03/21/25 16:35 16:49 16:56 17:10 Temp 98.4 98.4 98.4 Pulse 92 87 86 Resp 10 13 14 12 B/P (MAP) 106/49 120/100 (107) 109/53 (71) Pulse Ox 97 96 95 O2 Flow Rate 0 0 03/21/25 03/21/25 03/21/25 03/21/25 17:25 17:35 18:10 18:27 Temp 98.4 Pulse 83 83 87 86 Resp 12 12 15 18 B/P (MAP) 85/39 (54) 64/36 (45) 109/51 (70) 112/57 (75) Pulse Ox 97 95 95 94 O2 Flow Rate 0 0 0 0 Laboratory Tests Test 03/21/25 16:39 03/21/25 17:57 03/21/25 18:50 03/21/25 19:10 White Blood Count 10.5 Red Blood Count 4.08 L Hemoglobin 13.6 Hematocrit 38.9 Mean Corpuscular Volume 95.5 Mean Corpuscular Hemoglobin 33.3 H Mean Corpuscular Hemoglobin Concent 34.9 Red Cell Distribution Width 13.6 Platelet Count 379 Mean Platelet Volume 6.1 L Neutrophils (%) (Auto) 57.7 Lymphocytes (%) (Auto) 30.7 Monocytes (%) (Auto) 6.8 Eosinophils (%) (Auto) 3.7 Basophils (%) (Auto) 1.1 H Neutrophils # (Auto) 6.1 Lymphocytes # (Auto) 3.2 Monocytes # (Auto) 0.7 Eosinophils # (Auto) 0.4 Basophils # (Auto) 0.1 CBC Comment Prothrombin Time 10.5 INR International Normalized Ratio 1.0 Activated Partial Thromboplast Time 25 Coagulation Comments Sodium Level 144 Potassium Level 3.5 Chloride Level 109 H Carbon Dioxide Level 24.5 Anion Gap 11 Blood Urea Nitrogen 13 Creatinine 0.80 Estimated GFR/1.73 m2 72 BUN/Creatinine Ratio 16.3 Glucose Level 99 Calcium Level 8.5 Total Bilirubin 0.3 Aspartate Amino Transf (AST/SGOT) 30 Alanine Aminotransferase (ALT/SGPT) 55 Alkaline Phosphatase 77 Troponin I High Sensitivity 6 5 Pro-B-Type Natriuretic Peptide 53 Total Protein 6.2 L Albumin 3.2 L Globulin 3.0 Albumin/Globulin Ratio 1.1 Chemistry Comments Lactic Acid Level 2.1 H Troponin I High Sens Percent Delta 16 Troponin I Hi Sens Absolute Change -1 Urine Specimen Description Cln catch midstream Urine Color Brown Urine Clarity Cloudy Urine pH Urine Specific [place] Urine Protein Urine Glucose (UA) Urine Ketones Urine Occult Blood Urine Nitrite Urine Bilirubin Urine Urobilinogen Urine Leukocyte Esterase Urine RBC Tntc Urine WBC 50-100 H Urine WBC Clumps Few Urine Squamous Epithelial Cells None seen Urine Bacteria 2+ Urine Hyaline Casts 0-3 Urine Mucus None seen Volume Urine Centrifuged 10 ml Urine Comment See note Test 03/21/25 19:39 Lactic Acid Level 1.4 Troponin I High Sensitivity 6 Troponin I High Sens Percent Delta 20 Troponin I Hi Sens Absolute Change 1 Microbiology Date/Time Source Procedure Growth Status 03/21/25 18:00 Blood Hand Left Blood Culture - Preliminary NEGATIVE (LESS THAN 24 HOURS) Resulted EKG/XRAY/CT/US/VASC/MRI EKG : Intepreting Monitor?: Yes Additional Comment [facility] Test Date: 2025-03-21 Test Time: 16:34:26 Pat Name: MARCOS MAYES Department: EMERGENCY ROOM Room: Gender: 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 Gordon Tomlinson Measurements Intervals [place] Rate: 91 P: 66 [place]: 142 QRS: 57 QRSD: 82 T: 64 QT: 372 QTc: 458 Interpretive Statements Sinus rhythm Low voltage, precordial leads Anteroseptal infarct, old Electronically Signed On 03-21-2025 19:21:[address] Gordon Tomlinson Please click the below link to view image of tracing. EKG Date and Time:03/21/25 1634 Electronically Signed by: GORDON TOMLINSON MD Date and Time: 03/21/25 1921 Chest X-Ray : Additional Comments CHEST RADIOGRAPH Indication: CP Technique: Single frontal view of the chest was obtained COMPARISON: DI CHEST,SINGLE VIEW on DOS: 01/03/25, CHEST,SINGLE VIEW on DOS: 02/21/21, CHEST,SINGLE VIEW on DOS: 09/30/20, CHEST,SINGLE VIEW on DOS: 08/11/20, CHEST,SINGLE VIEW on DOS: 07/10/20 FINDINGS: Lines and Tubes: None Lungs: Clear Pleura: No effusion. No pneumothorax. Cardiomediastinal contours: Unremarkable Bones: Unremarkable IMPRESSION: 1. No acute disease. Electronically Signed by:ZACHARIAH ALLEN MD Date & Time: 03/21/25 1701 Departure Time of Disposition: 20:27 Disposition: ADMITTED INPATIENT Admitted to Inpatient Unit: yes, to hospitalist Impression: Primary Impression: Pyelonephritis Additional Impressions: Staghorn renal calculus Sepsis Near syncope Condition: Fair Additional Instructions: Please make sure that your dog is able to call 911 for you. Urgently follow up with [facility] for your urological symptoms. Referrals: NO PRIMARY CARE PROVIDER (PCP) MAGDIEL CALL MD, VICTORIANO MD Education Educated: Patient Educated regarding: diagnosis, treatment, need for follow up Signature Scribe Signature: Scribed for Gordon Tomlinson MD by Jimmy Hidalgo . 03/21/25 19:54 GILL BURNS MD Mar 21, 2025 17:33 JIMMY LYNNE Mar 21, 2025 19:55
[2025-03-21] MEDS: normal saline 1000ml 1,000 ML IV ONE (17:36)
[2025-03-21 17:58] LABS: APTT 25 SECONDS (22-32); PROTHROMBIN TIME 10.5 SECONDS (9.0-12.0)
[2025-03-21 18:10] VITALS: TEMP 98.4
[2025-03-21 18:27] VITALS: BP 112/57; PULSE 86; RESP 18; O2SAT 94
[2025-03-21] MEDS: CefTRIAXone 2gm/D5W 50ml BAG 50 ML IV ONE (18:39)
[2025-03-21 19:32] LABS: CLARITY,URINE CLOUDY (Clear)
[2025-03-21 19:39] LABS: UA COLLECTION TYPE CLN CATCH MIDSTREAM
[2025-03-21 19:42] LABS: COLOR,URINE BROWN (Yellow)
[2025-03-21 19:43] LABS: BACTERIA,URINE 2+ /HPF (Neg); HYALINE CASTS 0-3 /LPF (NEGATIVE); MUCUS STRANDS NONE SEEN /LPF (Neg); RBC,URINE TNTC /HPF (0-2); SQUAMOUS EPITHELIAL CELL,UR NONE SEEN /LPF (FEW); WBC CLUMPS,URINE FEW /HPF (NEGATIVE); WBC,URINE 50-100 /HPF (0-4)
[2025-03-21] MEDS ORDERED: CEFD300C21 PO (20:22)
== END 2025-03-21 20:46 | disposition left against medical advice (07) ==
LOC: ER 16:35
DX: N12 Tubulo-interstitial nephritis, not specified as acute or chronic (principal); N20.0 Calculus of kidney; A41.9 Sepsis, unspecified organism; E11.9 Type 2 diabetes mellitus without complications; E78.00 Pure hypercholesterolemia, unspecified; I10 Essential (primary) hypertension; I25.10 Atherosclerotic heart disease of native coronary artery without angina pectoris; J44.9 Chronic obstructive pulmonary disease, unspecified; Z88.0 Allergy status to penicillin; Z91.041 Radiographic dye allergy status; Z88.8 Allergy status to other drugs, medicaments and biological substances; Z90.49 Acquired absence of other specified parts of digestive tract; Z79.82 Long term (current) use of aspirin
CPT/HCPCS: 36415; 71045; 80053; 81001; 83605; 83880; 84484; 85025; 85610; 85730; 87040; 93005; 96361; 96365; 99285; C1758; J0696; J7030